=== PATIENT | male | born 1980 | race Caucasian/White ===

== ENCOUNTER 2019-03-18 00:02 | Emergency (ER) | payer OTHER ==
[2019-03-18] MEDS: HYDROCODONE/APAP (5/325) TAB PO (02:15)
== END 2019-03-18 02:17 | disposition home or self-care (01) ==
LOC: FTE 00:02
DX: N20.0 Calculus of kidney (principal); N23 Unspecified renal colic; R31.9 Hematuria, unspecified
CPT/HCPCS: 81001; 81003; 99283